=== PATIENT | male | born 1950 | race Caucasian/White ===

== ENCOUNTER → 2024-11-03 08:13 | Outpatient (REF) | payer MEDICARE, OTHER, SELFPAY | LOC: RAD 08:13 | PROVIDERS: ATTENDING PHYSICIAN Specialist; FAMILY PHYSICIAN Family Medicine | DX: R10.9 Unspecified abdominal pain (principal) | CPT/HCPCS: 76700 ==

== ENCOUNTER → 2024-11-17 07:37 | Outpatient (REF) | payer MEDICARE, OTHER, SELFPAY | LOC: MRI 07:37 | PROVIDERS: ATTENDING PHYSICIAN Specialist; FAMILY PHYSICIAN Family Medicine | DX: N18.4 Chronic kidney disease, stage 4 (severe) (principal); E78.00 Pure hypercholesterolemia, unspecified | CPT/HCPCS: 74183; A9575 ==

== ENCOUNTER → 2024-11-28 07:54 | Outpatient (REF) | payer MEDICARE, OTHER, SELFPAY | LOC: RAD 07:54 | PROVIDERS: ATTENDING PHYSICIAN Internal Medicine Hematology & Oncology | DX: C64.1 Malignant neoplasm of right kidney, except renal pelvis (principal); C22.0 Liver cell carcinoma; C64.2 Malignant neoplasm of left kidney, except renal pelvis; Z90.81 Acquired absence of spleen | CPT/HCPCS: 71250 ==

== ENCOUNTER → 2024-12-04 08:21 | Outpatient (REF) | payer MEDICARE, OTHER, SELFPAY ==
[2024-12-04 09:16] LABS: % Basophils 0.7 % (0-2); % Monocytes 11.8 % (1.7-9.3); % Neutrophils 53.5 % (42.2-75.2); Absolute Eosinophils 0.1 10^3/uL (0-0.7); Absolute Lymphocytes 1.3 10^3/uL (1.2-3.4); Absolute Monocytes 0.5 10^3/uL (0.1-0.6); Absolute Neutrophils 2.3 10^3/uL (1.4-6.5); Hematocrit 45.8 % (39.0-52.0); Hemoglobin 15.7 g/dL (13.0-18.0); Mean Corp Hgb Conc. 34.3 g/dL (33.0-37.0); Mean Corpuscular Hgb 32.3 pg (27.0-31.0); Mean Corpuscular Volume 94.2 fL (80.0-94.0); Mean Platelet Volume 9.8 fL (7.4-10.4); Nucleated Red Blood Cells % 0 % (-); Platelet Count 191 10^3/uL (130-400); Red Blood Cell Count 4.86 10^6/uL (4.70-6.10); Red Cell Dist. Width 14.3 % (11.5-14.5); White Blood Cell Count 4.3 10^3/uL (4.8-10.8)
[2024-12-04 09:25] VITALS: BP 136/97; BP_SYST 75
[2024-12-04 09:30] LABS: INR 1.03; PT 13.8 Sec (11.4-14.6)
[2024-12-04 09:35] LABS: Blood Urea Nitrogen 43 mg/dl (9-20); Calcium 10.2 mg/dl (8.4-10.2); Carbon Dioxide 27 mmol/L (22-30); Chloride 109 mmol/L (98-107); Glucose 109 mg/dl (70-99); Potassium 5.1 mmol/L (3.5-5.1); Sodium 143 mmol/L (135-145); eGFR 20.44
== END ==
LOC: RADI 08:21
PROVIDERS: ATTENDING PHYSICIAN Internal Medicine Hematology & Oncology; FAMILY PHYSICIAN Family Medicine; OTHER PHYSICIAN Physician Assistant
DX: K76.89 Other specified diseases of liver (principal); I48.91 Unspecified atrial fibrillation; I45.10 Unspecified right bundle-branch block; D68.8 Other specified coagulation defects; Z53.8 Procedure and treatment not carried out for other reasons
CPT/HCPCS: 36415; 80048; 85025; 85610; 93005

== ENCOUNTER 2024-12-04 09:46 | Emergency (ER) | payer MEDICARE, OTHER, SELFPAY ==
[2024-12-04 09:50] VITALS: BP 148/105
--- NOTE | 2024-12-04 10:14 | ED.GENMED ---
History of Present Illness
General
Chief Complaint: Heart Rate Problem
Time Seen by Provider: 12/04/24 10:14
History of Present Illness
History of Present Illness:
TIME OF INITIAL EVALUATION
- 10:15 AM
REVIEW OF OLD RECORDS
- History of CKD, liver cancer, patient had a colonoscopy 2021
CHIEF COMPLAINT(S)
Abnormal heart rhythm detected.
HISTORY OF PRESENT ILLNESS
The patient is a 74-year-old male with a history of stage four kidney disease who presented for a scheduled liver biopsy due to a suspicious liver mass detected on prior imaging. During pre-procedural evaluation, the patient was found to be in
atrial fibrillation without symptoms such as palpitations or chest pain. There are no reported episodes of atrial fibrillation in the past and no anticoagulation therapy has been initiated due to the pending biopsy. He does not have a director of medicare.
The patient reports recently starting antihypertensive medication due to recent blood pressure elevation. Additionally, imaging revealed small masses on the right kidney in addition to the liver mass. The patient denies any history of stroke or
cardiovascular consults.
ADDITIONAL HISTORY OBTAINED FROM SOURCES OTHER THAN THE PATIENT
The patient mentioned that interventional radiology decided not to perform the biopsy today due to the atrial fibrillation and is awaiting further recommendations, likely from cardiology consultation.
PHYSICAL EXAM
- General: Well appearing in no distress
- HEENT: Moist oral mucosa
- Cardiovascular: No murmurs, normal heart rate, irregular rhythm, No chest wall tenderness
- Pulmonary: No respiratory distress, breath sounds are clear and equal
- Abdomen: Soft with no peritoneal signs, no tenderness
- Neurologic: Excellent strength all extremities, no coordination deficits
- Psychiatric: Appropriate mental status, normal insight and judgement
- Extremities: Nontender, no edema, moves all extremities equally
- Skin: No rash, no lesions
PLAN
Coordinate with cardiology for further evaluation and management of atrial fibrillation, considering the pending liver biopsy and potential need for anticoagulation therapy.
DIFFERENTIAL DIAGNOSIS
The Differential Diagnosis includes, in no particular order and is not limited to:
- Atrial fibrillation secondary to hypertensive heart disease
- Hepatocellular carcinoma
- Metastatic liver disease
- Renal cell carcinoma
- Primary hyperaldosteronism
- Paraneoplastic syndrome
- Chronic kidney disease-related hypertension
- Secondary hypertension
- Liver cirrhosis
- Benign hepatic lesions
RADIOLOGY
- Not indicated
EKG
- A-fib/flutter 75 rightward axis deviation, incomplete right bundle branch block
LABS
- CBC unremarkable, chemistries unremarkable however CKD again noted now with creatinine of 2.8, thyroid normal
UPDATE
-I discussed case with Dr. Salinas who recommends the patient still have the biopsy performed. I then notified Dr. Mooney of cardiology's recommendation. The patient has no symptoms. I do not feel that it would be safe to cardiovert him now as
we have no idea how long he has been in A-fib for as he has no symptoms. He does have a CHADS2 Vascor of 2 and likely will need to be anticoagulated at some point but will hold off for now until after the biopsy.
SUMMARY OF ENCOUNTER
The patient presented for follow-up on an abnormal heart rhythm detected during pre-procedural evaluation for a scheduled liver biopsy. The primary concern is management of atrial fibrillation detected, and the impact of anticoagulation therapy in
relation to the pending biopsy.
DISPOSITION
The patient will be discharged with follow-up arrangements made for cardiology evaluation. They have been scheduled to see a director of medicare on Saturday.
MANAGEMENT OF THE PATIENTS CARE WAS DISCUSSED WITH
The case was discussed with Dr. Salinas, the director of medicare, regarding scheduling and management of the patients atrial fibrillation. I also sent message to on-call heme-onc, Dr. José however there was no response.
FOLLOW-UP INSTRUCTIONS
Patient will follow up with cardiology on Saturday. Contact information for the director of medicare was provided. The patient was advised to contact the director of medicare if they do not receive a call by noon on Saturday.
MEDICATION RECONCILIATION
Anticoagulation therapy is on hold due to the upcoming biopsy.
MEDICAL DECISION MAKING
1. Number & Complexity of Problems:
- Chronic conditions affecting care: History of stage four kidney disease.
- Differential diagnoses include atrial fibrillation secondary to hypertensive heart disease.
2. Data Reviewed:
- Category 3: Discussion with Dr. Salinas, director of medicare, regarding scheduling and management.
3. Risk: Consideration of the complexity and risk of procedure-related decisions, such as holding anticoagulation therapy due to upcoming liver biopsy. Outpatient management for atrial fibrillation is appropriate based on stable vital signs and
arrangement of cardiology follow-up.
Will hold off on biopsy until order clarified by Dr. Hall and will hold off on anticoagulation until further evaluated by cardiology after the biopsy. He is to see Dr. Salinas on Saturday.
Past History
Past History
ED Past Medical History: Other (renal)
Phy Exam
Physical Exam
Physical Exam:
See HPI
Scores
[id number] Score for Afib Stroke Risk
Age in Years (65=0, 65-74=1, >/=75=2): 65-74
Sex (Female=+1): Male
Congestive Heart Failure History (Yes=+1): No
Hypertension History (Yes=+1): Yes
Stroke/TIA/Thromboembolism History (Yes=+2): No
Vascular Disease History (Yes=+1): No
Diabetes Mellitus (Yes=+1): No
Score: 2
Anticoagulation Recommendations: Recommend anticoagulation (as validated in nonvalvular fib)
Course
Orders/Labs/Results
Orders:
Orders
12/04/24 10:42
Basic Metabolic Panel Urgent
Complete Blood Count/With Diff Urgent
Potassium Urgent
TSH Reflex To Free T4 Urgent
Abnormal Lab Results
12/04/24
10:42
MCH 31.5 H pg
(27.0-31.0)
Monocytes % 9.5 H %
(1.7-9.3)
Chloride 112 H mmol/L
(98-107)
BUN 45 H mg/dl
(9-20)
Creatinine 2.8 H mg/dL
(0.7-1.3)
12/04/24 10:42
12/04/24 10:42
Vital Signs
Initial and Last Documented VS:
Initial Vital Signs
Temp Pulse Resp BP Pulse Ox
36.6 C 70 16 148/105 100
12/04/24 09:50 12/04/24 09:50 12/04/24 09:50 12/04/24 09:50 12/04/24 09:50
Last Documented Vital Signs
Temp Pulse Resp BP Pulse Ox
36.6 C 74 14 131/99 98
12/04/24 09:50 12/04/24 12:00 12/04/24 12:00 12/04/24 12:00 12/04/24 12:00
*Pulse Oximetry
SaO2: 100
Oxygen Mode of Delivery: Room air
*Critical Care Note
Total Time (30-74mins, 75-104mins- exclusive of procedures): Not Applicable
ED Attending Note
-
Portions of this chart may have been created with voice recognition software.� Occasional wrong word or��sound alike� substitutions may have occurred due to the inherent limitations of voice recognition software.
Discharge Plan
Departure
Patient Disposition: Home (Routine Discharge)
Date of Disposition: 12/04/24
Time of Disposition: 10:54
Patient with high blood pressure during this ER visit?: Yes
Discharge Problem:
Atrial fibrillation
Instructions: Atrial Fibrillation (DC), BLOOD PRESSURE
Prescriptions:
No Action
multivitamin [Daily Multiple] 1 EACH tablet
1 ea PO DAILY
ascorbic acid (vitamin C) [Vitamin C] 500 MG tablet
500 mg PO DAILY
finasteride 5 MG tablet
5 mg PO DAILY
atorvastatin 10 mg Tablet
10 mg PO DAILY
amlodipine 2.5 mg Tablet
2.5 mg PO DAILY
famotidine 20 mg Tablet
20 mg PO HS
Referrals:
Yefri Mooney MD [Active, Radiology]
Jordan Koch DO [Family Provider, Family Practice]
Bryson Salinas MD [Active, Cardiology]
Michel Hall DO [Active, Hematology / Oncology]
Activity Restrictions/Additional Instructions:
I notified Dr. Mooney, the interventional radiologist. Since there was a concern with if they were going to biopsy kidney or liver, I contacted Dr. Hall's associate, Dr Hadley. I also spoke to the on-call director of medicare, Dr. Salinas�he
states that his office has scheduled you for this coming December 08 and their office should be calling you. Return here if worse or other concerns.
Interventions
Interventions:
*Risk Screen - Suicide Last Done: 12/04/24 09:50
*General Assessment Last Done: 12/04/24 10:42
*Neglect/Abuse Screening Last Done: 12/04/24 09:50
*ED- Fall Risk Assessment Last Done: 12/04/24 10:42
*ED COVID-19 Vaccine History Last Done: 12/04/24 10:42
ED- Cardiac Assessment Last Done: 12/04/24 10:44
ED- Pulmonary Assessment Last Done: 12/04/24 10:44
Discharge Date and Time
Print Language: SERBIAN
[2024-12-04 10:43] VITALS: BMI 22.1
[2024-12-04 10:56] LABS: % Basophils 0.5 % (0-2); % Eosinophils 1.2 % (0-6); % Immature Granulocytes 0.2 % (0-0.5); % Lymphocytes 25.3 % (20.5-51.1); % Monocytes 9.5 % (1.7-9.3); % Neutrophils 63.3 % (42.2-75.2); Absolute Eosinophils 0.1 10^3/uL (0-0.7); Absolute Lymphocytes 1.5 10^3/uL (1.2-3.4); Absolute Monocytes 0.6 10^3/uL (0.1-0.6); Absolute Neutrophils 3.8 10^3/uL (1.4-6.5); Hematocrit 44.7 % (39.0-52.0); Mean Corp Hgb Conc. 33.6 g/dL (33.0-37.0); Mean Corpuscular Hgb 31.5 pg (27.0-31.0); Mean Corpuscular Volume 93.9 fL (80.0-94.0); Mean Platelet Volume 10.2 fL (7.4-10.4); Nucleated Red Blood Cells % 0 % (-); Platelet Count 192 10^3/uL (130-400); Red Blood Cell Count 4.76 10^6/uL (4.70-6.10); Red Cell Dist. Width 14.1 % (11.5-14.5)
[2024-12-04 11:00] VITALS: BP 137/105
[2024-12-04 11:33] LABS: Blood Urea Nitrogen 45 mg/dl (9-20); Carbon Dioxide 24 mmol/L (22-30); Chloride 112 mmol/L (98-107); Estimated Creatinine Clearance 25 ml/min; Glucose 99 mg/dl (70-99); Sodium 142 mmol/L (135-145)
[2024-12-04 11:54] LABS: TSH Reflex To Free T4 1.52 uIU/ml (0.47-4.68)
[2024-12-04 11:57] LABS: Potassium 4.6 mmol/L (3.5-5.1)
[2024-12-04 12:00] VITALS: BP 131/99
== END 2024-12-04 12:42 | disposition home or self-care (01) ==
LOC: EMR 09:46
PROVIDERS: EMERGENCY PHYSICIAN Emergency Medicine; FAMILY PHYSICIAN Family Medicine
DX: I48.91 Unspecified atrial fibrillation (principal); N18.9 Chronic kidney disease, unspecified; Z85.05 Personal history of malignant neoplasm of liver
CPT/HCPCS: 99283; 80048; 84132; 84443; 85025

== ENCOUNTER 2024-12-14 09:07 | Outpatient (REF) | payer MEDICARE, OTHER, SELFPAY ==
[2024-12-14] VITALS (8 sets, daily range): BP systolic 75–149; BP diastolic 75–97
== END 2024-12-14 15:06 | disposition home or self-care (01) ==
LOC: RADI 09:07
PROVIDERS: ATTENDING PHYSICIAN Internal Medicine Hematology & Oncology; FAMILY PHYSICIAN Family Medicine
DX: K76.89 Other specified diseases of liver (principal)
CPT/HCPCS: 88307; 47000; 71045; 77012; 88333; 88341; 88342; 99152; 99153

== ENCOUNTER 2025-01-04 06:56 | Outpatient (REF) | payer MEDICARE, OTHER, SELFPAY ==
[2025-01-04] VITALS (11 sets, daily range): BP systolic 70–126; BP diastolic 60–95; BMI 21.8
[2025-01-04 07:23] LABS: Hematocrit 44.6 % (39.0-52.0); Hemoglobin 15.0 g/dL (13.0-18.0); Mean Corp Hgb Conc. 33.6 g/dL (33.0-37.0); Mean Corpuscular Volume 95.1 fL (80.0-94.0); Platelet Count 192 10^3/uL (130-400); Red Cell Dist. Width 14.0 % (11.5-14.5)
[2025-01-04 07:34] LABS: INR 1.00; PT 13.5 Sec (11.4-14.6)
[2025-01-04 07:42] LABS: Blood Urea Nitrogen 49 mg/dl (9-20); Calcium 9.6 mg/dl (8.4-10.2); Carbon Dioxide 25 mmol/L (22-30); Chloride 109 mmol/L (98-107); Estimated Creatinine Clearance 24 ml/min; Glucose 110 mg/dl (70-99); Potassium 4.8 mmol/L (3.5-5.1); Sodium 141 mmol/L (135-145); eGFR 21.26
== END 2025-01-04 12:10 | disposition home or self-care (01) ==
LOC: RADI 06:56
PROVIDERS: ATTENDING PHYSICIAN Internal Medicine Hematology & Oncology
DX: D30.02 Benign neoplasm of left kidney (principal)
CPT/HCPCS: 36415; 50200; 76942; 80048; 85027; 85610; 88305; 88333; 88334; 88341; 88342; 99152; 99153

== ENCOUNTER → 2025-01-19 07:04 | Outpatient (REF) | payer MEDICARE, OTHER, SELFPAY | LOC: RCS 07:04 | PROVIDERS: ATTENDING PHYSICIAN Internal Medicine Cardiovascular Disease; FAMILY PHYSICIAN Family Medicine | DX: I48.19 Other persistent atrial fibrillation (principal) | CPT/HCPCS: 93306 ==